=== PATIENT | female | born 1965 | race Caucasian/White ===

== ENCOUNTER 2019-04-08 15:24 | Outpatient (CLI) | payer OTHER, MEDICAID ==
[~2019-04-08 15:24] MED LIST: ACET-73 PO; LEVO50TA8 PO; LOXAPINE PO; QUET400T PO; TRAZADONE PO; ZOLP10TA2 PO
== END 2019-04-08 21:11 | disposition home or self-care (01) ==
LOC: SRD 15:24
DX: M17.11 Unilateral primary osteoarthritis, right knee (principal); M76.9 Unspecified enthesopathy, lower limb, excluding foot
CPT/HCPCS: 73564

== ENCOUNTER 2020-01-13 15:35 | Emergency (ER) | payer OTHER, MEDICAID, SELFPAY ==
[~2020-01-13] VITALS: Ht 165.1 cm; Wt 103.4 kg
[2020-01-13 15:40] VITALS: BP_SYST 124
--- NOTE | 2020-01-13 15:40 | NUR ---
Patient to ER bed 4 to gown for evaluation. Side rails up. Report given to RICHA Haley.
--- NOTE | 2020-01-13 15:45 | NUR ---
Patient presents to ER C/O Generalized weakness. Patient BIB BLS, A&Ox4, afebrile, skin pink & warm, denies pain, denies N/V/D. Patient states she has weakness x1 week.
[2020-01-13] MEDS ORDERED: NACL 0.9% 1,000 ML IV ONE (16:00)
--- NOTE | 2020-01-13 16:00 | NUR ---
# 20 gauge angiocath placed to Left wrist. Use of asceptic technique. Opsite placed over site. Blood return noted. Blood for lab drawn from site. Flushed with 10 cc of normal saline. No evidence of infiltration noted. Patient tolerated well. Medicated per MD orders. IVF infusing with no s/s of infiltration at this time. Will cont to monitor
[2020-01-13 16:23] LABS: BASOPHILS % (AUTO) 0.5 % (0.0-2.0); EOSINOPHILS # (AUTO) 0.1 K/uL (0.0-0.4); EOSINOPHILS % (AUTO) 1.8 % (0.0-4.0); HEMATOCRIT 37.6 % (36-48); HEMOGLOBIN 12.5 g/dL (12.0-16.0); LYMPHOCYTES # (AUTO) 1.8 K/uL (1.0-5.5); LYMPHOCYTES % (AUTO) 22.7 % (20.5-51.5); MEAN CORPUSCULAR HEMOGLOBIN 28 pg (27-31); MEAN CORPUSCULAR HGB CONC 33 % (32-36); MEAN CORPUSCULAR VOLUME 85 fL (79.0-98.0); MONOCYTES # (AUTO) 0.6 K/uL (0.0-1.0); MONOCYTES % (AUTO) 7.1 % (1.7-9.3); NEUTROPHILS # (AUTO) 5.5 K/uL (1.8-7.7); NEUTROPHILS % (AUTO) 67.9 % (40.0-70.0); PLATELET COUNT (AUTO) 186 K/uL (130-430); RED BLOOD CELL COUNT(AUTO) 4.44 MIL/uL (4.2-6.2); RED CELL DISTRIBUTION WIDTH 16.1 % (9.0-15.0); WHITE BLOOD COUNT (AUTO) 8.1 K/uL (4.8-10.8)
[2020-01-13 16:30] LABS: ANION GAP 10 (5-15); CALCIUM 8.6 mg/dL (8.4-11.0); CHLORIDE 101 mmol/L (98-107); CREATININE 0.75 mg/dL (0.55-1.30); GLUCOSE 125 mg/dL (70-99); POTASSIUM 3.7 mmol/L (3.5-5.1); SODIUM SERUM 136 mmol/L (136-145); UREA NITROGEN, BLOOD 15 mg/dL (8-21)
[2020-01-13 16:33] LABS: PROTHROMBIN TIME 10.2 SECS (9.5-12.5)
[2020-01-13 16:45] LABS: ALANINE AMINOTRANSFERASE 20 U/L (12-78); ALBUMIN 3.3 g/dL (3.4-4.8); ASPARTATE AMINOTRANSFERASE 17 U/L (10-37); THYROID STIMULATING HORMONE 4.22 uIu/mL (0.36-3.74); TOTAL BILIRUBIN 0.3 mg/dL (0.0-1.0)
[2020-01-13 16:54] LABS: GFR AFRICAN AMERICAN 103 mL/min (>90)
[2020-01-13 17:27] LABS: BILIRUBIN,URINE NEGATIVE (NEGATIVE); BLOOD, URINE NEGATIVE (NEGATIVE); CLARITY/URINE CLEAR (CLEAR); COLOR,URINE YELLOW (YELLOW); GLUCOSE,URINE 3+ (NEGATIVE); KETONES,URINE NEGATIVE (NEGATIVE); LEUKOCYTE ESTERASE ,URINE NEGATIVE (NEGATIVE); NITRITE, URINE NEGATIVE (NEGATIVE); PH,URINE 5.5 (5.0-8.0); PROTEIN URINE NEGATIVE (NEGATIVE); UROBILINOGEN,URINE 0.2 (0.2-1.0)
--- NOTE | 2020-01-13 17:30 | NUR ---
report to Deacon CHAUDHRY
[2020-01-13 17:43] LABS: BACTERIA,URINE FEW /HPF (None Seen); RBC,URINE NONE SEEN /HPF (0-3); WBC,URINE NONE SEEN /HPF (0-3)
[2020-01-13 18:10] VITALS: BP_SYST 124
--- NOTE | 2020-01-13 18:10 | NUR ---
Patient given written and verbal discharge instructions and verbalizes understanding. ER MD discussed with patient the results and treatment provided. Patient in stable condition. ID arm band removed. Rx of Levothroid given. Patient educated on pain management and to follow up with PMD. Pain Scale 0/10. Opportunity for questions provided and answered. Medication side effect fact sheet provided.
--- NOTE | 2020-01-13 18:11 | NUR ---
Family called to [employer] patient for ride home
== END 2020-01-13 18:00 | disposition home or self-care (01) ==
LOC: SED 15:35
DX: E03.9 Hypothyroidism, unspecified (principal); R53.1 Weakness; F17.210 Nicotine dependence, cigarettes, uncomplicated; Z79.899 Other long term (current) drug therapy; Z88.8 Allergy status to other drugs, medicaments and biological substances; Z20.828 Contact with and (suspected) exposure to other viral communicable diseases
CPT/HCPCS: 36415; 71045; 80053; 81000; 84443; 84484; 85025; 85610; 87426; 96360; 99284; J7030

== ENCOUNTER 2020-03-19 22:59 | Emergency (ER) | payer OTHER, MEDICAID, SELFPAY ==
[~2020-03-19] VITALS: Ht 165.1 cm; Wt 104.3 kg
[2020-03-19 23:55] VITALS: BP_SYST 119
[2020-03-20 01:02] VITALS: BP_SYST 119
== END 2020-03-20 01:02 | disposition home or self-care (01) ==
LOC: SED 22:59
DX: R10.9 Unspecified abdominal pain (principal); E11.9 Type 2 diabetes mellitus without complications; E03.9 Hypothyroidism, unspecified; Z20.822 Contact with and (suspected) exposure to COVID-19; Z79.899 Other long term (current) drug therapy; Z87.891 Personal history of nicotine dependence
CPT/HCPCS: 36415; 99283

== ENCOUNTER 2020-09-03 15:22 | Emergency (ER) | payer OTHER, MEDICAID ==
[~2020-09-03] VITALS: Ht 165.1 cm; Wt 113.4 kg
--- NOTE | 2020-09-03 15:23 | NUR ---
Patient to ER bed 07 to gown for evaluation. Side rails up.
--- NOTE | 2020-09-03 15:25 | NUR ---
Pt bib EMS from home with c/o anxiety and chest pressure. V/S stable, no acute distress noted. EKG done at bedside.
[2020-09-03 15:30] VITALS: BP_SYST 134
--- NOTE | 2020-09-03 15:30 | NUR ---
ER Dr. Sexton at bedside examining patient.
[2020-09-03] MEDS ORDERED: ALPRAZolam 0.25 MG TABLET PO ONE (15:45)
[2020-09-03 16:12] LABS: BASOPHILS # (AUTO) 0.1 K/uL (0.0-0.2); BASOPHILS % (AUTO) 0.8 % (0.0-2.0); EOSINOPHILS # (AUTO) 0.2 K/uL (0.0-0.4); EOSINOPHILS % (AUTO) 2.4 % (0.0-4.0); HEMATOCRIT 37.2 % (36-48); HEMOGLOBIN 12.4 g/dL (12.0-16.0); LYMPHOCYTES # (AUTO) 1.7 K/uL (1.0-5.5); LYMPHOCYTES % (AUTO) 25.3 % (20.5-51.5); MEAN CORPUSCULAR HEMOGLOBIN 29 pg (27-31); MEAN CORPUSCULAR HGB CONC 33 % (32-36); MEAN CORPUSCULAR VOLUME 86 fL (79.0-98.0); MONOCYTES # (AUTO) 0.5 K/uL (0.0-1.0); MONOCYTES % (AUTO) 7.4 % (1.7-9.3); NEUTROPHILS # (AUTO) 4.4 K/uL (1.8-7.7); NEUTROPHILS % (AUTO) 64.1 % (40.0-70.0); PLATELET COUNT (AUTO) 187 K/uL (130-430); RED BLOOD CELL COUNT(AUTO) 4.34 MIL/uL (4.2-6.2); RED CELL DISTRIBUTION WIDTH 15.5 % (9.0-15.0); WHITE BLOOD COUNT (AUTO) 6.9 K/uL (4.8-10.8)
[2020-09-03 16:20] LABS: PROTHROMBIN TIME 10.6 SECS (9.5-12.5)
[2020-09-03 16:24] LABS: CALCIUM 8.4 mg/dL (8.4-11.0); CREATININE 0.68 mg/dL (0.55-1.30); POTASSIUM 4.4 mmol/L (3.5-5.1)
[2020-09-03 16:39] LABS: ALBUMIN 3.2 g/dL (3.4-4.8); TOTAL BILIRUBIN 0.4 mg/dL (0.0-1.0)
[2020-09-03 17:10] VITALS: BP_SYST 134
--- NOTE | 2020-09-03 17:10 | NUR ---
Patient given written and verbal discharge instructions and verbalizes understanding. ER MD discussed with patient the results and treatment provided. Patient in stable condition. ID arm band removed. No prescriptions given. Patient educated on pain management and to follow up with PMD. Pain Scale 0. Opportunity for questions provided and answered. Medication side effect fact sheet provided.
== END 2020-09-03 17:10 | disposition home or self-care (01) ==
LOC: SED 15:22
DX: R06.02 Shortness of breath (principal); I10 Essential (primary) hypertension; E03.9 Hypothyroidism, unspecified; E11.9 Type 2 diabetes mellitus without complications; Z79.899 Other long term (current) drug therapy
CPT/HCPCS: 36415; 71045; 80053; 82550; 83880; 84484; 85025; 85610-TC; 85730-TC; 93005; 99285

== ENCOUNTER 2020-10-04 14:43 | Outpatient (CLI) | payer OTHER, MEDICAID | END 2020-10-04 16:00 | disposition home or self-care (01) | LOC: SMA 14:43 | DX: Z12.31 Encounter for screening mammogram for malignant neoplasm of breast (principal) | CPT/HCPCS: 77067 ==

== ENCOUNTER 2022-02-16 13:13 | Outpatient (CLI) | payer OTHER, MEDICAID | END 2022-02-16 20:29 | disposition home or self-care (01) | LOC: SMA 13:13 | PROVIDERS: ATTEND Internal Medicine | DX: Z12.31 Encounter for screening mammogram for malignant neoplasm of breast (principal) | CPT/HCPCS: 77067 ==